=== PATIENT | female | born 1955 | race Caucasian/White ===

== ENCOUNTER 2017-01-10 18:25 | Emergency (ER) | payer OTHER ==
--- NOTE | ~2017-01-10 | CR63 ---
[facility]. 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 : 1955 SEX: F STUDY DATE/TIME: 01/10/2017 18:20 UNIT: SED ROOM: STUDY DESCRIPTION: CR Chest 2 View Attending Physician: Luzma Ugalde A.P.R.N. Ordering Physician: Luzma Ugalde A.P.R.N. Primary Care Physician: Eladia Lamar M.D. MEDICAL IMAGING REPORT This report is preliminary unless electronic signature is present. EXAM 2 views of the chest, 01/10/2017 HISTORY Cough, fever, COPD 1 day duration. FINDINGS PA and lateral radiographs of the chest are presented. Comparison 11/25/2016 at 15:35 hours. No acute bony abnormality. Heart and mediastinum normal in size and contour. Lungs are well inflated. Calcified granuloma right lower lobe stable. Right lung otherwise clear. Subtle patchy densities in the left lower lung zone. Probably in the left lower lobe and likely reflecting mild pneumonitis/pneumonia. There is no dense air space consolidation. No pleural effusion or pneumothorax. Follow-up to radiographic resolution recommended. Visualized upper abdomen normal. Dictated by... Be Ngo M.D. THIS IS AN ELECTRONICALLY VERIFIED REPORT Be Ngo M.D. at 01/13/2017 6:09 PM Alicia TD: 01/11/2017 13:34 JOB #: [id number] MEDICAL IMAGING REPORT Page 1 of 1
[2017-01-10 18:23] LABS: INFLUENZA A NEG (NEG); INFLUENZA B POS (NEG)
[~2017-01-10 18:25] MED LIST: ALBUTEROL17 GM INH; AMLODIPINE-OLM1 EACH; ATORVASTATIN CA10 MG; BACTRIM DS TABL1 TA1 PO; BENICAR PO; CRESTOR PO; EXFORGE PO; HYDROCODON-ACE1 EAC7 PO; NORVASC PO; ONDANSETRON ODT4 MG PO; PHENERGAN25 MG PO; PRILOSEC20 MG PO; VALSARTAN80 MG; ZITHROMAX PO; ZOCOR PO
[2017-01-18] MEDS ORDERED: SYMBICORT80 INH (08:38)
[2017-01-18] MEDS ORDERED: TOPROL XL 50 MG50 MG PO (08:38)
[2017-01-18] MEDS ORDERED: SPIRIVA18 MCG PO (08:38)
[2017-01-18] MEDS ORDERED: NORVASC PO (08:39)
[2017-01-18] MEDS ORDERED: VALSARTAN-HCTZ1 EAC1 PO (08:39)
[2017-01-18] MEDS ORDERED: PRILOSEC (08:41)
== END 2017-01-10 19:34 | disposition home or self-care (01) ==
LOC: SED 18:25
PROVIDERS: Nurse Practitioner
DX: J10.00 Influenza due to other identified influenza virus with unspecified type of pneumonia (principal); E11.9 Type 2 diabetes mellitus without complications; K21.9 Gastro-esophageal reflux disease without esophagitis; J44.9 Chronic obstructive pulmonary disease, unspecified; E78.5 Hyperlipidemia, unspecified; Z79.899 Other long term (current) drug therapy
CPT/HCPCS: 71020; 87804; 96372; 99283; J0696

== ENCOUNTER 2017-01-18 08:56 | Emergency (ER) | payer OTHER ==
--- NOTE | ~2017-01-18 | CR72 ---
[facility]. [facility] A Service of [facility] & [facility] RADIOLOGY TEXT RESULTS PATIENT: MITCHELL ESTEVEZ LOCATION: SED : 51 UNIT #: [id number] AGE: [address]: Harpal House MD SEX: F ORDER DR: [id number] [place] [id number] E MR#: [id number] Acc #: [id number] NAME: MITCHELL ESTEVEZ : 1955 SEX: F STUDY DATE/TIME: 01/18/2017 9:12 UNIT: SED ROOM: STUDY DESCRIPTION: CR Chest Single View Portable Attending Physician: Harpal House M.D. Ordering Physician: Harpal House M.D. Primary Care Physician: Eladia Lamar M.D. MEDICAL IMAGING REPORT This report is preliminary unless electronic signature is present. EXAM Single view of the chest, 01/18/2017 at 0912 hours. COMPARISON Chest, 2 views, 01/10/2017. HISTORY Cough, shortness of air for 3 days. History of asthma, high cholesterol, and acid reflux. FINDINGS Single view of the chest was obtained. Calcified right lower lobe lung nodule is seen, suggestive of old granulomatous disease. The left lung is well aerated. Heart, mediastinum, and bones do not demonstrate any significant abnormality. Dictated by... Aron Espino M.D. THIS IS AN ELECTRONICALLY VERIFIED REPORT Aron Espino M.D. at 01/19/2017 2:04 PM CPR/js TD: 01/18/2017 09:57 JOB #: [id number] MEDICAL IMAGING REPORT Page 1 of 1
[~2017-01-18 08:56] MED LIST changes: +PRILOSEC; +SPIRIVA18 MCG PO; +SYMBICORT80 INH; +TOPROL XL 50 MG50 MG PO; +VALSARTAN-HCTZ1 EAC1 PO
== END 2017-01-18 10:41 | disposition home or self-care (01) ==
LOC: SED 08:56
DX: J40 Bronchitis, not specified as acute or chronic (principal); K21.9 Gastro-esophageal reflux disease without esophagitis; I10 Essential (primary) hypertension; E78.5 Hyperlipidemia, unspecified; Z79.899 Other long term (current) drug therapy
CPT/HCPCS: 71010; 94640; 99284